=== PATIENT | male | born 1950 | race Caucasian/White ===

== ENCOUNTER 2022-04-03 09:20 | Outpatient (CLI) | payer MEDICARE, OTHER, SELFPAY ==
--- NOTE | 2022-04-03 09:45 | ECG_ITS ---
Measurements Intervals [place] Rate: 75 P: OR: 0 QRS: 89 QRSD: 96 T: 81 QT: 344 QTc: 386 Interpretive Statements ATRIAL FIBRILLATION VENTRICULAR BIGEMINY CONSIDER ANTERIOR INFARCT, AGE INDETERMINATE ABNORMAL ECG NO PREVIOUS ECG AVAILABLE FOR COMPARISON Electronically Signed On 04-03-2022 10:12:50 [employer]LING [employer] MOLD ASSEMBLER by Geronimo Call D.O.
== END 2022-04-03 09:21 | disposition home or self-care (01) ==
LOC: CHSCARD 09:28
PROVIDERS: PCP Internal Medicine; Visit Provider Internal Medicine
DX: I25.10 Atherosclerotic heart disease of native coronary artery without angina pectoris (principal); R94.31 Abnormal electrocardiogram [ECG] [EKG]
CPT/HCPCS: 93005

== ENCOUNTER 2023-10-28 10:58 | Outpatient (CLI) | payer MEDICARE, SELFPAY ==
[2023-10-28 11:14] LABS: Hematocrit 47.6 % (37.0-46.0); Hemoglobin 16.4 g/dL (12.4-15.3); Mean Corpuscular HGB Conc 34.5 g/dL (32-36); Mean Corpuscular Hemoglobin 33.1 pg (27.0-31.0); Mean Platelet Volume 9.2 fl (8.7-11.0); Platelet Count Result 198 K/mm3 (150-420); Red Blood Count 4.96 M/mm3 (4.70-6.10); White Blood Count 8.4 K/mm3 (4.8-10.8)
[2023-10-28 11:18] LABS: Add Urine Microscopic? NO; Appearance Urine Clear (Clear); Bilirubin Urine Negative (Negative); Blood Urine Negative (Negative); Color Urine Yellow (Yellow); Glucose Urine UA Negative (Negative); Ketones Urine Negative (Negative); Leukocyte Esterase Ur Negative (Negative); Nitrate Urine Negative (Negative); Protein Urine Negative (Negative); Specific Grav Ur 1.025 (1.010-1.020)
[2023-10-28 13:25] LABS: Alanine Aminotransferase 14 U/L (16-63); Albumin Level 4.1 g/dL (3.4-5.0); Alkaline Phosphatase 59 U/L (46-116); Anion Gap 6 mmol/L (4-12); Aspartate Amino Transferase 26 U/L (15-37); Bilirubin,Total 0.9 mg/dL (0.00-1.00); Blood Urea Nitrogen 14 mg/dL (7-18); Calcium 9.4 mg/dL (8.5-10.1); Carbon Dioxide 32 mmol/L (21-32); Chloride 101 mmol/L (98-108); Cholesterol 134 mg/dL (0-200); Estimated Glomerular Filt Rate > 60; Glucose 91 mg/dL (70-99); HDL Direct 51 mg/dL (40-60); LDL Cholesterol Calculated 66 mg/dL (<130); Osmolality Calculated 288 mOsm/kg (285-295); Potassium 4.1 mmol/L (3.5-5.1); Prostate Specific Antigen 0.6 ng/mL (< OR = 4.0); Sodium 139 mmol/L (136-145); Thyroid Stimulating Hormone 2.14 uIU/mL (0.36-3.74); Total Protein 7.1 g/dL (6.4-8.2); Triglycerides 83 mg/dL (0-150)
== END 2023-10-28 10:59 | disposition home or self-care (01) ==
LOC: CHSLAB 11:01
PROVIDERS: PCP Internal Medicine; Visit Provider Internal Medicine
DX: I10 Essential (primary) hypertension (principal); E78.5 Hyperlipidemia, unspecified; Z12.5 Encounter for screening for malignant neoplasm of prostate
CPT/HCPCS: 36415; 80053; 80061; 81003; 84153; 84443; 85027; G0103

== ENCOUNTER 2025-01-02 11:00 | Outpatient (CLI) | payer MEDICARE, OTHER, SELFPAY ==
--- NOTE | 2025-01-02 12:00 | NEURO_ITS ---
IMPRESSION: # Complains of gait dysfunction and numbness of arms and legs. ? 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 ? # Mild right ulnar neuropathy across the elbow. ? # Abnormal Needle/EMG exam with neurogenic changes, more so in lower extremities. Nerve Conduction Studies ?Stim Site NR Peak (ms) P-T Amp (?V) Site1 Site2 Delta-P (ms) Dist (cm) Ashutosh (m/s) Left Median Anti Sensory (2-3nd Digit) Wrist ? 4.5 16.8 Wrist 2-3nd Digit 4.5 14.0 31 Wrist ? 4.2 19.9 Wrist 2-3nd Digit 4.5 14.0 31 Right Median Anti Sensory (2-3nd Digit) Wrist ? 4.3 12.9 Wrist 2-3nd Digit 4.3 14.0 33 Wrist ? 4.3 22.6 Wrist 2-3nd Digit 4.3 14.0 33 Left Radial Anti Sensory (Base 1st Digit) Wrist ? 2.4 15.2 Wrist Base 1st Digit 2.4 0.0 Right Radial Anti Sensory (Base 1st Digit) Wrist ? 2.8 4.6 Wrist Base 1st Digit 2.8 0.0 Left Sup Fibular Anti Sensory (Ant Lat Mall)??? NO RESPONSE 14 cm NR 14 cm Ant Lat Mall 16.0 Right Sup Fibular Anti Sensory (Ant Lat Mall)??? NO RESPONSE 14 cm NR 14 cm Ant Lat Mall 16.0 Left Sural Anti Sensory (Lat Mall)??? NO RESPONSE Calf NR Calf Lat Mall 16.0 Right Sural Anti Sensory (Lat Mall) Calf ? 4.1 22.4 Calf Lat Mall 4.1 16.0 39 Left Ulnar Anti Sensory (5th Digit) Wrist ? 2.8 20.4 Wrist 5th Digit 2.8 14.0 50 Right Ulnar Anti Sensory (5th Digit) Wrist ? 3.9 29.6 Wrist 5th Digit 3.9 14.0 36 ?Stim Site NR Onset (ms) O-P Amp (mV) Site1 Site2 Delta-0 (ms) Dist (cm) Ashutosh (m/s) Left Median Motor (Abd Poll Brev) Wrist ? 3.9 2.4 Elbow Wrist 5.7 31.0 54 Elbow ? 9.6 5.0 Right Median Motor (Abd Poll Brev) Wrist ? 4.0 3.1 Elbow Wrist 6.1 30.0 49 Elbow ? 10.1 4.5 Left Peroneal Motor (Vastus Med) Ankle ? 4.8 0.6 Popit Ankle 10.7 45.0 42 Popit ? 15.5 0.5 Right Peroneal Motor (Vastus Med) Ankle ? 5.1 0.4 Popit Ankle 9.6 36.0 38 Popit ? 14.7 0.4 Left Tibial Motor (Abd Owusu Brev) Ankle ? 4.8 1.3 Knee Ankle 10.8 42.0 39 Knee ? 15.6 0.8 Right Tibial Motor (Abd Owusu Brev) Ankle ? 4.9 0.7 Knee Ankle 12.8 45.0 35 Knee ? 17.7 0.4 Left Ulnar Motor (Abd Dig Minimi) Wrist ? 3.4 4.7 A Elbow Wrist 6.5 33.0 51 A Elbow ? 9.9 3.9 Right Ulnar Motor (Abd Dig Minimi) Wrist ? 2.8 5.1 A Elbow Wrist 6.9 33.0 48 A Elbow ? 9.7 3.8 B Elbow Wrist 4.8 23.0 48 B Elbow ? 7.6 4.0 F Wave Studies ?NR F-Lat (ms) L-R F-Lat (ms) Left Median (Mrkrs) (Abd Poll Brev) ? 32.48 0.00 Right Median (Mrkrs) (Abd Poll Brev) ? 32.48 0.00 Left Peroneal (Mrkrs) (EDB) ? 60.58 0.94 Right Peroneal (Mrkrs) (EDB) ? 59.65 0.94 Left Tibial (Mrkrs) (Abd Hallucis) ? 59.82 0.12 Right Tibial (Mrkrs) (Abd Hallucis) ? 59.94 0.12 Left Ulnar (Mrkrs) (Abd Dig Min) ? 33.86 1.46 Right Ulnar (Mrkrs) (Abd Dig Min) ? 35.32 1.46 Electromyography ?Side Muscle Nerve Root Ins Act Fibs Amp Dur Recrt Comment Right 1stDorInt Ulnar C8-T1 Nml Nml Nml >12ms Nml Right Ext Indicis Radial (Post Int) C7-8 Nml Nml Nml >12ms Nml Right Ext Digitorum Radial (Post Int) C7-8 Nml Nml Nml >12ms Nml Right BrachioRad Radial C5-6 Nml Nml Nml >12ms Nml Right PronatorTeres Median C6-7 Nml Nml Nml >12ms Nml Right Abd Poll Brev Median C8-T1 Nml Nml Nml >12ms Nml Right ABD Dig Min Ulnar C8-T1 Nml Nml Nml >12ms Nml Right FlexPolLong Median (Ant Int) C7-8 Nml Nml Nml >12ms Nml Right Abd Poll Long Radial (Post Int) C7-8 Nml Nml Nml >12ms Nml Right AntTibialis Dp Br Fibular L4-5 Nml Nml Nml >12ms Nml Right Gastroc Tibial S1-2 Nml Nml Nml >12ms Nml Right Fibularis Long Sup Br Fibular L5-S1 Nml Nml Nml >12ms Nml Right Flex Dig Long Tibial L5-S2 Nml Nml Nml >12ms Nml Right Ext Dig Brev Dp Br Fibular L5, S1 Nml Nml Nml >12ms Nml Right QuadratusFem QuadFemoris L4-5, S1 Nml Nml Nml >12ms Nml Left AntTibialis Dp Br Fibular L4-5 Nml Nml Nml >12ms Nml Left Gastroc Tibial S1-2 Nml Nml Nml >12ms Nml Left Fibularis Long Sup Br Fibular L5-S1 Nml Nml Nml >12ms Nml Left Flex Dig Long Tibial L5-S2 Nml Nml Nml >12ms Nml Left Ext Dig Brev Dp Br Fibular L5, S1 Nml Nml Nml >12ms Nml Left QuadratusFem QuadFemoris L4-5, S1 Nml Nml Nml >12ms Nml Left 1stDorInt Ulnar C8-T1 Nml Nml Nml >12ms Nml Left Ext Indicis Radial (Post Int) C7-8 Nml Nml Nml >12ms Nml Left Ext Digitorum Radial (Post Int) C7-8 Nml Nml Nml >12ms Nml Left BrachioRad Radial C5-6 Nml Nml Nml >12ms Nml Left PronatorTeres Median C6-7 Nml Nml Nml >12ms Nml Left Abd Poll Brev Median C8-T1 Nml Nml Nml >12ms Nml Left ABD Dig Min Ulnar C8-T1 Nml Nml Nml >12ms Nml Left FlexPolLong Median (Ant Int) C7-8 Nml Nml Nml >12ms Nml Left Abd Poll Long Radial (Post Int) C7-8 Nml Nml Nml >12ms Nml
--- OUTSIDE RECORDS SUMMARY | 2025-01-02 13:54 | XMS_ITS | Clinical Summary ---
Author Organization [facility] Address [address] [place] [address] Care Team Providers Care Puzzle Assembler Name Role Phone Unavailable Primary Care Provider Unavailabl e Social History Tobacco Use Types Packs/Day Years Used Date Smoking Tobacco: Never Assessed Sex and Gender Information Value Date Recorded Sex Assigned at Not on file Legal Sex Male 7:55 AM CDT Gender Identity Not on file Sexual Orientation Not on file Plan of Treatment Health Maintenance Due Date Last Done Comments Hepatitis C Virus (HCV) Screening 1950 Cologuard 01/15/1996 Colonoscopy 01/15/1996 Colorectal Cancer Screening 01/15/1996 Immunochemical Fecal Occult Blood 01/15/1996 Zoster Immunization (1 of 2) 2001 Pneumococcal Immunization (50+ years) (2 of 2 - PCV) 01/06/2020 01/05/2019 Influenza Immunization (#1) 11/13/202401/13, 02/14/2021, 02/20/2020, Additional history exists SARS-COV-2 Immunization ( - season) 2024 Respiratory Syncytial Virus (RSV) Immunization (Adult) (1 - 1-dose 75+ series) 2026 DTaP/Tdap/Td Immunization Discontinued 07/15/2012 TdaP Immunization Completed 07/15/2012 Hepatitis B Immunization Aged Out No longer eligible based on patient's age to complete this topic Human Papillomavirus (HPV) Immunization Aged Out No longer eligible based on patient's age to complete this topic Meningococcal Immunization (ACWY) Aged Out No longer eligible based on patient's age to complete this topic Rotavirus Immunization Aged Out No lo nger eligible based on patient's age to complete this topic Insurance [place], [place] [employer]
== END 2025-01-02 11:01 | disposition home or self-care (01) ==
PROVIDERS: PCP Internal Medicine; Visit Provider Internal Medicine
DX: G62.89 Other specified polyneuropathies (principal); G56.21 Lesion of ulnar nerve, right upper limb; G56.93 Unspecified mononeuropathy of bilateral upper limbs; G57.93 Unspecified mononeuropathy of bilateral lower limbs
CPT/HCPCS: 95886; 95913